=== PATIENT | male | born 1970 ===

== ENCOUNTER 2021-06-17 17:22 | Emergency (ER) | payer SELFPAY ==
[~2021-06-17] VITALS: Ht 193 cm; Wt 160.9 kg
[2021-06-17 18:36] VITALS: BP 157/107
== END 2021-06-17 20:57 | disposition left against medical advice (07) ==
LOC: ER 17:23
DX: S09.90XA Unspecified injury of head, initial encounter (principal); R05 Cough; Z53.21 Procedure and treatment not carried out due to patient leaving prior to being seen by health care provider; X58.XXXA Exposure to other specified factors, initial encounter; Y93.9 Activity, unspecified; Y92.9 Unspecified place or not applicable; Y99.9 Unspecified external cause status